=== PATIENT | female | born 1990 | race African-American/Black ===

== ENCOUNTER 2019-06-03 09:00 | Observation (INO) | payer MEDICAID ==
[~2019-06-03] VITALS: Ht 165.1 cm; Wt 97.5 kg
[~2019-06-03 09:00] MED LIST: FERR-7
[2019-06-03] MEDS ORDERED: ACETAMINOPHEN 325 MG TAB PO ONE (10:45)
[2019-06-03] MEDS ORDERED: LACTATED RINGER'S 1,000 ML IV ONE (11:30)
[2019-06-03 12:28] LABS: Basophils # (auto) 0 uL; Basophils % (auto) 0.4 % (0.0-2.0); Eosinophils # (auto) 0.2 uL; Hemoglobin 8.6 g/dL (12.2-16.2); Lymphocytes # (auto) 1.1 uL; Monocytes # (auto) 0.4 uL
[2019-06-03 12:31] LABS: Eosinophils % (auto) 2.8 % (0.0-7.0); Hematocrit 26.5 % (36.0-46.0); Lymphocytes % (auto) 20.1 % (10.0-50.0); Mean Corpuscular Hemoglobin 26.1 pg (28.0-32.0); Mean Corpuscular Hgb Conc. 32.5 g/dL (32.0-36.0); Mean Corpuscular Volume 80.2 fL (80.0-100.0); Monocytes % (auto) 6.6 % (0.0-12.0); Neutrophils # (auto) 3.9 uL; Neutrophils % (auto) 70.1 % (37.0-80.0); Nucleated Red Blood Cells % 0.2 %; Platelet Count (auto) 259 10^3/uL (140-450); Red Cell Distribution Width 15.3 % (11.8-14.3); White Blood Cell 5.5 10^3/uL (4.4-10.8)
[2019-06-03 12:45] LABS: Alcohol, Urine < 3.0 mg/dL (0-5); Amphetamine Screen, Urine NEGATIVE (NEGATIVE); Barbiturate Scree,Urine NEGATIVE (NEGATIVE); Benzodiazephine Screen, Urine NEGATIVE (NEGATIVE); Cannabinoid Screen, Urine POSITIVE (NEGATIVE); Cocaine Screen, Urine NEGATIVE (NEGATIVE); Opiate Scree,Urine NEGATIVE (NEGATIVE); Phencyclidine Screen, Urine NEGATIVE (NEGATIVE)
[2019-06-03 12:46] LABS: Albumin 2.9 g/dL (3.4-5.0); Calcium 8.4 mg/dL (8.5-10.1)
[2019-06-03 12:51] LABS: BUN/Creatinine Ratio 11.5; Bilirubin, Total 0.3 mg/dL (0.2-1.0); Uric Acid 4.1 mg/dL (2.6-6.0)
[2019-06-03 13:00] LABS: Urine Bacteria FEW /hpf (None Seen); Urine Blood Negative /uL (Negative); Urine Mucus FEW (None Seen); Urine Specific Gravity 1.016 (1.001-1.035); Urine WBC 1 /hpf (0 - 5)
== END 2019-06-03 13:25 | disposition home or self-care (01) | DRG 566 ==
LOC: LDRP 09:00
PROVIDERS: ADMIT Obstetrics & Gynecology; ATTEND Obstetrics & Gynecology
DX: O21.2 Late vomiting of pregnancy (principal); O99.322 Drug use complicating pregnancy, second trimester; O46.92 Antepartum hemorrhage, unspecified, second trimester; R51 Headache; Z87.891 Personal history of nicotine dependence; Z91.19 Patient's noncompliance with other medical treatment and regimen; Z3A.21 21 weeks gestation of pregnancy
CPT/HCPCS: 36415; 59025; 76805; 80053; 80307; 81001; 81002; 84550; 85025; G0378

== ENCOUNTER 2019-09-03 18:15 | Emergency (ER) | payer MEDICAID ==
[~2019-09-03] VITALS: Ht 165.1 cm; Wt 100.2 kg
[2019-09-03 18:28] VITALS: BP 145/95
[2019-09-03] MEDS ORDERED: ACETAMINOPHEN/CODEINE#3 (300/30mg) TAB PO ONE (19:15)
[2019-09-03] MEDS ORDERED: cefTRIAXone SOD 1,000 MG VL IM ONE (19:15)
== END 2019-09-03 19:51 | disposition home or self-care (01) ==
LOC: ER 18:25
DX: K04.7 Periapical abscess without sinus (principal); Z88.6 Allergy status to analgesic agent
CPT/HCPCS: 96372; 99283; J0696

== ENCOUNTER 2019-09-06 23:08 | Emergency (ER) | payer MEDICAID ==
[~2019-09-06] VITALS: Ht 165.1 cm; Wt 102.5 kg
[2019-09-07] MEDS ORDERED: NALBUPHINE HCL 10 MG/1ml INJECTION IM ONE (00:45)
[2019-09-07] MEDS ORDERED: cefTRIAXone SOD 1,000 MG VL IM ONE (00:45)
[2019-09-07] MEDS ORDERED: ACETAMINOPHEN/CODEINE#3 (300/30mg) TAB PO ONE (01:30)
[2019-09-07 01:58] VITALS: BP 148/94
== END 2019-09-07 02:04 | disposition home or self-care (01) ==
LOC: ER 23:09
DX: R11.2 Nausea with vomiting, unspecified (principal); T50.905A Adverse effect of unspecified drugs, medicaments and biological substances, initial encounter; K04.7 Periapical abscess without sinus; Z88.6 Allergy status to analgesic agent; Y92.89 Other specified places as the place of occurrence of the external cause
CPT/HCPCS: 96372; 99283; J0696

== ENCOUNTER 2019-09-16 18:20 | Observation (INO) | payer MEDICAID ==
[~2019-09-16] VITALS: Ht 165.1 cm; Wt 127.5 kg
[2019-09-16 19:50] LABS: Urine Bacteria FEW /hpf (None Seen); Urine Blood Negative /uL (Negative); Urine Mucus FEW (None Seen); Urine Specific Gravity 1.018 (1.001-1.035); Urine WBC <1 /hpf (0 - 5)
[2019-09-16 19:52] LABS: Basophils # (auto) 0 uL; Eosinophils # (auto) 0.1 uL
[2019-09-16 19:54] LABS: Basophils % (auto) 0.4 % (0.0-2.0); Hematocrit 21.7 % (36.0-46.0); Lymphocytes # (auto) 1.1 uL; Lymphocytes % (auto) 16.7 % (10.0-50.0); Mean Corpuscular Hemoglobin 22.1 pg (28.0-32.0); Mean Corpuscular Hgb Conc. 31.1 g/dL (32.0-36.0); Monocytes # (auto) 0.5 uL; Monocytes % (auto) 7.6 % (0.0-12.0); Neutrophils % (auto) 74.3 % (37.0-80.0); Platelet Count (auto) 271 10^3/uL (140-450); Red Blood Cells 3.06 10^6/uL (4.0-5.20); Red Cell Distribution Width 16.9 % (11.8-14.3); White Blood Cell 6.7 10^3/uL (4.4-10.8)
[2019-09-16 20:00] LABS: Hemoglobin 6.8 g/dL (12.2-16.2)
[2019-09-16 20:01] LABS: INR 1.01 (0.9-1.15)
[2019-09-16 20:02] LABS: Albumin 2.8 g/dL (3.4-5.0); Calcium 8.5 mg/dL (8.5-10.1); Potassium 3.9 mmol/L (3.5-5.1)
[2019-09-16 20:04] LABS: Alcohol, Urine < 3.0 mg/dL (0-5); Amphetamine Screen, Urine NEGATIVE (NEGATIVE); Barbiturate Scree,Urine NEGATIVE (NEGATIVE); Benzodiazephine Screen, Urine NEGATIVE (NEGATIVE); Cocaine Screen, Urine NEGATIVE (NEGATIVE); Opiate Scree,Urine NEGATIVE (NEGATIVE); Phencyclidine Screen, Urine NEGATIVE (NEGATIVE)
[2019-09-16 20:05] LABS: BUN/Creatinine Ratio 13.6; Bilirubin, Total 0.2 mg/dL (0.2-1.0); Total Protein 6.9 g/dL (6.4-8.2); Uric Acid 4.1 mg/dL (2.6-6.0)
[2019-09-16 20:09] LABS: Cannabinoid Screen, Urine POSITIVE (NEGATIVE)
[2019-09-16 21:47] VITALS: BP 134/72
[2019-09-16 22:48] VITALS: BP 142/74
[2019-09-17] VITALS (8 sets, daily range): BP systolic 129–146; BP diastolic 67–88
[2019-09-17 03:52] LABS: Basophils # (auto) 0 uL; Eosinophils # (auto) 0.1 uL; Eosinophils % (auto) 1.1 % (0.0-7.0); Hemoglobin 7.4 g/dL (12.2-16.2); Lymphocytes # (auto) 1.5 uL; Monocytes # (auto) 0.6 uL
[2019-09-17 03:55] LABS: Basophils % (auto) 0.4 % (0.0-2.0); Hematocrit 22.7 % (36.0-46.0); Lymphocytes % (auto) 20.3 % (10.0-50.0); Mean Corpuscular Hemoglobin 23.6 pg (28.0-32.0); Mean Corpuscular Hgb Conc. 32.4 g/dL (32.0-36.0); Mean Corpuscular Volume 72.9 fL (80.0-100.0); Monocytes % (auto) 7.9 % (0.0-12.0); Neutrophils # (auto) 5.1 uL; Neutrophils % (auto) 70.3 % (37.0-80.0); Platelet Count (auto) 245 10^3/uL (140-450); Red Blood Cells 3.12 10^6/uL (4.0-5.20); White Blood Cell 7.2 10^3/uL (4.4-10.8)
[2019-09-17] MEDS: ACETAMINOPHEN 325 MG TAB PO PRN (05:01)
[2019-09-17 07:58] LABS: Hematocrit 23.2 % (36.0-46.0); Hemoglobin 7.6 g/dL (12.2-16.2)
[2019-09-18 05:06] LABS: RPR Non Reactive (Non Reactive)
== END 2019-09-17 15:00 | disposition home or self-care (01) | DRG 566 ==
LOC: LDRP 18:20
PROVIDERS: ADMIT Obstetrics & Gynecology; ATTEND Obstetrics & Gynecology
DX: O13.3 Gestational [pregnancy-induced] hypertension without significant proteinuria, third trimester (principal); Z3A.36 36 weeks gestation of pregnancy
CPT/HCPCS: 36415; 36430; 59025; 76805; 80053; 80307; 81001; 81002; 84112; 84550; 85014; 85018; 85025; 85379; 85610; 85730; 86592; 86703; 86762; 86850; 86900; 86901; 86920; 87081; 87340; G0378; J7030; P9016; 94760; 96365; 96366

== ENCOUNTER 2019-09-30 12:50 | Observation (INO) | payer MEDICAID ==
[2019-09-30] MEDS ORDERED: PREN27TA7 OR (13:19)
[2019-09-30 13:54] LABS: Basophils # (auto) 0 uL; Basophils % (auto) 0.4 % (0.0-2.0); Eosinophils # (auto) 0 uL; Hematocrit 26.9 % (36.0-46.0); Lymphocytes # (auto) 1.1 uL; Monocytes # (auto) 0.4 uL; Neutrophils # (auto) 4.6 uL; White Blood Cell 6.2 10^3/uL (4.4-10.8)
[2019-09-30 13:55] LABS: Eosinophils % (auto) 0.6 % (0.0-7.0); Hemoglobin 8.8 g/dL (12.2-16.2); Lymphocytes % (auto) 17.9 % (10.0-50.0); Mean Corpuscular Hemoglobin 24.5 pg (28.0-32.0); Mean Corpuscular Hgb Conc. 32.8 g/dL (32.0-36.0); Mean Corpuscular Volume 74.8 fL (80.0-100.0); Monocytes % (auto) 7.2 % (0.0-12.0); Neutrophils % (auto) 73.9 % (37.0-80.0); Nucleated Red Blood Cells % 0.1 %; Platelet Count (auto) 220 10^3/uL (140-450); Red Blood Cells 3.59 10^6/uL (4.0-5.20)
[2019-09-30 14:14] LABS: Urine Bacteria NONE SEEN /hpf (None Seen); Urine Blood Negative /uL (Negative); Urine Mucus FEW (None Seen); Urine Specific Gravity 1.017 (1.001-1.035); Urine WBC 10 /hpf (0 - 5)
[2019-09-30 14:18] LABS: INR 1.06 (0.9-1.15); Partial Thromboplastin Time 27.8 sec (23.64-32.05)
[2019-09-30 14:27] LABS: Alcohol, Urine < 3.0 mg/dL (0-5); Amphetamine Screen, Urine NEGATIVE (NEGATIVE); Barbiturate Scree,Urine NEGATIVE (NEGATIVE); Benzodiazephine Screen, Urine NEGATIVE (NEGATIVE); Cannabinoid Screen, Urine POSITIVE (NEGATIVE); Cocaine Screen, Urine NEGATIVE (NEGATIVE); Opiate Scree,Urine NEGATIVE (NEGATIVE); Phencyclidine Screen, Urine NEGATIVE (NEGATIVE)
[2019-09-30 14:28] LABS: Albumin 2.8 g/dL (3.4-5.0); Calcium 8.6 mg/dL (8.5-10.1); Potassium 3.6 mmol/L (3.5-5.1)
[2019-09-30 14:33] LABS: BUN/Creatinine Ratio 11.3; Bilirubin, Total 0.2 mg/dL (0.2-1.0); Total Protein 6.7 g/dL (6.4-8.2); Uric Acid 4.8 mg/dL (2.6-6.0)
== END 2019-09-30 16:10 | disposition home or self-care (01) | DRG 566 ==
LOC: LDRP 12:50
PROVIDERS: ADMIT Specialist; ATTEND Specialist
DX: O99.323 Drug use complicating pregnancy, third trimester (principal); O46.93 Antepartum hemorrhage, unspecified, third trimester; Z3A.38 38 weeks gestation of pregnancy
CPT/HCPCS: 36415; 59025; 76815; 80053; 80307; 81001; 81002; 84112; 84550; 85025; 85610; 85730; G0378

== ENCOUNTER 2019-10-02 09:40 | Observation (INO) | payer MEDICAID ==
[~2019-10-02] VITALS: Ht 165.1 cm; Wt 98.0 kg
[~2019-10-02 09:40] MED LIST changes: +PREN27TA7 OR
[2019-10-02 12:01] LABS: Basophils # (auto) 0 uL; Eosinophils # (auto) 0 uL; Hematocrit 26.1 % (36.0-46.0); Hemoglobin 8.5 g/dL (12.2-16.2); Lymphocytes # (auto) 1.2 uL; Monocytes # (auto) 0.4 uL
[2019-10-02 12:02] LABS: Basophils % (auto) 0.4 % (0.0-2.0); Eosinophils % (auto) 0.6 % (0.0-7.0); Lymphocytes % (auto) 20.1 % (10.0-50.0); Mean Corpuscular Hemoglobin 24.6 pg (28.0-32.0); Mean Corpuscular Hgb Conc. 32.5 g/dL (32.0-36.0); Mean Corpuscular Volume 75.6 fL (80.0-100.0); Monocytes % (auto) 7.5 % (0.0-12.0); Neutrophils # (auto) 4.1 uL; Neutrophils % (auto) 71.4 % (37.0-80.0); Platelet Count (auto) 222 10^3/uL (140-450); Red Blood Cells 3.46 10^6/uL (4.0-5.20); White Blood Cell 5.8 10^3/uL (4.4-10.8)
[2019-10-02 12:06] LABS: Red Cell Distribution Width 22.5 % (11.8-14.3)
[2019-10-02 12:17] LABS: INR 1.03 (0.9-1.15); Partial Thromboplastin Time 27.8 sec (23.64-32.05)
[2019-10-02 12:19] LABS: Albumin 2.7 g/dL (3.4-5.0); Calcium 8.4 mg/dL (8.5-10.1); Potassium 3.5 mmol/L (3.5-5.1)
[2019-10-02 12:25] LABS: BUN/Creatinine Ratio 9.3; Bilirubin, Total 0.3 mg/dL (0.2-1.0); Total Protein 6.3 g/dL (6.4-8.2); Uric Acid 4.6 mg/dL (2.6-6.0)
[2019-10-02] MEDS ORDERED: LABETALOL HCL 200 MG TAB PO ONE (12:30)
[2019-10-02] MEDS ORDERED: HYDROcodone-ACET 10/325MG TAB PO ONE (12:50)
[2019-10-03] MEDS ORDERED: LABE100T4 PO (12:30)
== END 2019-10-02 14:50 | disposition home or self-care (01) | DRG 566 ==
LOC: LDRP 09:40
PROVIDERS: ADMIT Obstetrics & Gynecology; ATTEND Obstetrics & Gynecology
DX: O99.323 Drug use complicating pregnancy, third trimester (principal); O13.3 Gestational [pregnancy-induced] hypertension without significant proteinuria, third trimester; Z3A.38 38 weeks gestation of pregnancy
CPT/HCPCS: 36415; 59025; 76818; 80053; 81002; 84550; 85025; 85610; 85730; G0378

== ENCOUNTER 2019-10-03 11:55 | Observation (INO) | payer MEDICAID ==
[2019-10-03] MEDS ORDERED: LABE100T4 PO (12:30)
[2019-10-03 12:51] LABS: Protein, Urine 33.7 mg/dL (0.0-11.9)
[2019-10-03 13:24] LABS: 24 Hr. Total Protein, Urine 202.2 mg/24 Hr (<149.1)
== END 2019-10-03 13:55 | disposition home or self-care (01) | DRG 566 ==
LOC: LDRP 11:55
PROVIDERS: ADMIT Obstetrics & Gynecology; ATTEND Obstetrics & Gynecology
DX: O13.3 Gestational [pregnancy-induced] hypertension without significant proteinuria, third trimester (principal); Z3A.39 39 weeks gestation of pregnancy
CPT/HCPCS: 59025; 81002; 84156; G0378